=== PATIENT | male | born 1935 | race Two or more races ===

== ENCOUNTER 2017-06-21 22:49 | Inpatient (IN) | payer MEDICARE, OTHER ==
[~2017-06-21] VITALS: Ht 162.6 cm; Wt 54.4 kg
[~2017-06-21 22:49] MED LIST: BACTRIM DS TAB1 EAC1 ORAL; BENAZEPRIL HCL20 MG ORAL; COREG25 MG ORAL; CRESTOR10 M1 ORAL; NORVASC5 MG ORAL; OMEPRAZOLE20 M2 ORAL; TRAMADOL HCL50 MG ORAL; ZANTAC150 MG ORAL
[2017-06-21 23:00] VITALS: BP 137/77
[2017-06-22] VITALS (7 sets, daily range): BP systolic 120–151; BP diastolic 70–95
[2017-06-22 00:59] LABS: BASOPHILS % (AUTO) 0.4 % (0.0-2.0); EOSINOPHILS % (AUTO) 0.3 % (0.0-3.0); HEMATOCRIT 33.7 % (42.0-52.0); HEMOGLOBIN 11.6 G/DL (14.2-18.0); LYMPHOCYTES % (AUTO) 10.4 % (20.0-45.0); MEAN CORPUSCULAR VOLUME 91 FL (80-99); NEUTROPHILS % (AUTO) 81.9 % (45.0-75.0); PLATELET COUNT 222 K/UL (150-450); RED CELL DISTRIBUTION WIDTH 15.9 % (11.6-14.8); WHITE BLOOD COUNT 7.9 K/UL (4.8-10.8)
[2017-06-22 01:03] LABS: ANION GAP 8 mmol/L (5-15); BLOOD UREA NITROGEN 9 mg/dL (7-18); CALCIUM 8.7 MG/DL (8.5-10.1); CARBON DIOXIDE 27 MMOL/L (21-32); CHLORIDE 103 MMOL/L (98-107); CREATININE 1.2 MG/DL (0.55-1.30); POTASSIUM 4.4 MMOL/L (3.5-5.1); SODIUM 138 MMOL/L (136-145)
[2017-06-22 01:08] LABS: ALANINE AMINOTRANSFERASE 47 U/L (12-78); ALBUMIN 3.2 G/DL (3.4-5.0); ALBUMIN/GLOBULIN RATIO 0.9 (1.0-2.7); ALKALINE PHOSPHATASE 100 U/L (46-116); ASPARTATE AMINO TRANSFERASE 26 U/L (15-37); BILIRUBIN,TOTAL 0.3 MG/DL (0.2-1.0)
[2017-06-22] MEDS ORDERED: XARELTO15 MG ORAL (02:07)
[2017-06-22] MEDS ORDERED: ZOFRAN4 M1 ORAL (02:07)
[2017-06-22] MEDS ORDERED: PREDNISOLO15 MG/5 M1 ORAL (02:07)
[2017-06-22] MEDS ORDERED: AVODART0.5 MG ORAL (02:07)
[2017-06-22] MEDS ORDERED: TRAMADOL HCL100 M2 ORAL (02:07)
[2017-06-22] MEDS ORDERED: LIDOCAINE700 M1 TP (02:07)
[2017-06-22] MEDS ORDERED: TAMSULOSIN HCL0.4 MG ORAL (02:07)
[2017-06-22] MEDS ORDERED: ARTIFICIAL TEA1 EAC2 OP (02:07)
[2017-06-22] MEDS ORDERED: CRESTOR10 M1 ORAL (02:07)
[2017-06-22] MEDS ORDERED: TRAMADOL HCL50 MG ORAL (02:07)
[2017-06-22] MEDS ORDERED: VASCEPA1 GM PO (02:07)
[2017-06-22] MEDS ORDERED: PROTONIX20 MG ORAL (02:08)
[2017-06-22] MEDS ORDERED: MOM30 ML ORAL (02:08)
[2017-06-22] MEDS ORDERED: Morphine Sulfate 2mg/ml Inj IVP ONE (02:15)
--- NOTE | 2017-06-22 02:31 | Emergency Room Report ---
History of Present Illness General Chief Complaint: Generalized Weakness Source: Patient, EMS Present Illness HPI 82-year-old male sent [facility] for "vomiting and weakness." However when speaking to patient in seldovia Farsi, RN states that patient complaining of right-sided lower abdominal pain. Patient is otherwise alert and oriented x3. He denies headache, vomiting, fever or, chills or urinary complaints or shortness of breath. HPI otherwise limited Allergies: Coded Allergies: No Known Allergies (Unverified , 06/22/17) Patient History Past Medical History: unable to obtain Past Surgical History: none Social History: Denies: smoking, alcohol use, drug use Immunizations: UTD Reviewed Nursing Documentation: PMH: Agreed, PSxH: Agreed Nursing Documentation-PMH Past Medical History: No History, Except For Hx Cardiac Problems: Yes - STENT in 02/2009 Hx Hypertension: Yes Hx Pacemaker: No Hx Asthma: No Hx COPD: No Hx Diabetes: No Hx Cancer: Yes Hx Gastrointestinal Problems: Yes - GERD, POLYPS, Rt Herniorrhapy in 2009 Hx Dialysis: No Hx Neurological Problems: No Hx Cerebrovascular Accident: No Review of Systems All Other Systems: negative except mentioned in HPI Physical Exam Vital Signs Date Time Temp Pulse Resp B/P (MAP) Pulse Ox O2 Delivery O2 Flow Rate FiO2 06/21/17 22:33 98.0 99 20 97 Room Air 98.1 06/21/17 23:00 137/77 Sp02 EP Interpretation: reviewed, normal General Appearance: normal inspection, well appearing, no apparent distress, alert, non-toxic, cachetic, thin Head: normocephalic, atraumatic Eyes: bilateral eye PERRL, bilateral eye EOMI ENT: normal ENT inspection, hearing grossly normal, normal pharynx, no angioedema, normal voice, TMs + canals normal, uvula midline, moist mucus membranes Neck: normal inspection, full range of motion, supple, thyroid normal, no meningismus, no bony tend Respiratory: normal inspection, lungs clear, normal breath sounds, no rhonchi, no respiratory distress, no retraction, no accessory muscle use, no wheezing, speaking full sentences Cardiovascular #1: regular rate, rhythm, no edema, no JVD, normal capillary refill Gastrointestinal: normal inspection, normal bowel sounds, non tender, soft, no mass, no peritonitis, non-distended, no guarding, no hernia, no pulsatile mass, other - Mild right sided abd ttp. No peritonitis. Musculoskeletal: normal inspection, back normal, normal range of motion, no calf tenderness, pelvis stable, Tiffany's Sign negative Neurologic: normal inspection, alert, oriented x3, responsive, shovel logger III-XII nml as tested, motor strength/tone normal, cerebellar normal, normal gait, speech normal Psychiatric: normal inspection, judgement/insight normal, mood/affect normal, no suicidal/homicidal ideation, no delusions Skin: normal inspection, normal color, no rash Lymphatic: normal inspection, no adenopathy Medical Decision Making Diagnostic Impression: Primary Impression: Episode of generalized weakness Additional Impressions: Abdominal pain Qualified Codes: R10.31 - Right lower quadrant pain Pleural effusion, left ER Course VSS, afebrile Not septic appearing Labs: No leukocytosis, H&H stable. ECG shows bifascicular block however troponin is within normal limits CT: left pleural effusion. No other acute findings. C/o pain to abdomen - was given morphine. Is calm/cooperative when resting, becomes agitated when moved, RN working, etc. ?dementia as well contributing From [facility] PMD listed is Dr Wood Med/surg admit: 5am EKG Diagnostic Results Rate: normal Rhythm: NSR ST Segments: other - Bifasciular block Rhythm Strip Diag. Results EP Interpretation: yes Rate: 97 Rhythm: NSR, no PVC's, no ectopy Last Vital Signs Date Time Temp Pulse Resp B/P (MAP) Pulse Ox O2 Delivery O2 Flow Rate FiO2 18 01:00 98.1 101 24 126/70 97 Room Air 98.1 Status: improved Disposition: ADMITTED INPATIENT Condition: Serious Referrals: NOT CHOSEN IPA/,REFERRING (PCP) ELLIS HILL M.D. Jun 22, 2017 02:31
[2017-06-22 04:03] LABS: APPEARANCE,URINE CLEAR; BILIRUBIN, URINE NEGATIVE (NEGATIVE); COLOR,URINE PALE YELLOW; GLUCOSE, URINE (UA) NEGATIVE (NEGATIVE); KETONES,URINE NEGATIVE (NEGATIVE); LEUKOCYTE ESTERASE ,URINE NEGATIVE (NEGATIVE); NITRITE,URINE NEGATIVE (NEGATIVE); PH,URINE 8 (4.5-8.0); PROTEIN,URINE NEGATIVE (NEGATIVE); UROBILINOGEN,URINE NORMAL MG/DL (0.0-1.0)
[2017-06-22] MEDS ORDERED: traMADol 50mg tab ORAL ONE (09:00)
[2017-06-22] MEDS ORDERED: Norco 5mg/325mg tab ORAL PRN (09:00)
[2017-06-22] MEDS ORDERED: traMADol 50mg tab ORAL PRN (09:00)
[2017-06-22] MEDS: Xarelto 10mg tab ORAL SCH (09:44)
--- NOTE | 2017-06-22 09:54 | Diagnostic Imaging Report ---
Indication: Abdominal pain Technique: Continuous helical transaxial imaging of the abdomen and pelvis was obtained from the lung bases to the pubic symphysis during intravenous contrast administration. Coronal 2-D reformats were also obtained. Study obtained in a Siemens sensation [address] Automatic Exposure Control was utilized. Total Dose length Product (DLP): 898.[address] Dose Index Volume (CTDIvol): 16.38 mGy Comparison: None Findings: There is a small left pleural effusion and basilar pneumonia versus atelectasis. The heart is enlarged. Aorta is moderately calcified. Gallbladder is unremarkable. Accessory spleen noted. The stomach is nondistended. There are bilateral renal cysts. Diverticula noted in the colon. Appendix is normal. Bladder is unremarkable. No free fluid or free air identified. There is narrowing of intervertebral discs and accompanying endplate osteophyte formation. Hypertrophied facet joints also demonstrated.. L1, L2 and L3 vertebra show moderate fracture deformity. These are age-indeterminate but probably old. Please correlate clinically. Bones are osteopenic. Breathing motion noted as well as some other artifacts. IMPRESSION: Left basilar mild to moderate pleural effusion with atelectasis versus pneumonia. Compression fractures of L1, L2 and L3 vertebra probably old. Please correlate clinically. Diverticulosis. No definite diverticulitis in the colon. Other incidental findings as described above. [facility] has communicated the preliminary results to the Emergency Department. Their findings are largely concordant with this report. The CT scanner at [facility] is accredited by the [employer] and the scans are performed using dose optimization techniques as appropriate to a performed exam including Automatic Exposure control.
--- NOTE | 2017-06-22 11:08 | General Progress Note ---
Subjective Date patient seen: Jun 22, 2017 Time patient seen: 10:00 Allergies: Coded Allergies: No Known Allergies (Unverified , 06/22/17) Subjective Full H&P dictation done. Objective Last 24 Hour Vital Signs Date Time Temp Pulse Resp B/P (MAP) Pulse Ox O2 Delivery O2 Flow Rate FiO2 06/22/17 10:44 98.9 06/22/17 10:43 98.9 06/22/17 09:45 110 120/80 06/22/17 09:44 100.8 06/22/17 09:00 100.8 110 19 120/80 93 100.8 06/22/17 05:31 99.0 98 17 134/83 98 Room Air 06/22/17 05:30 99.0 98 17 134/83 98 Room Air 99.0 06/22/17 05:05 99.0 98 26 151/95 98 Room Air 99.0 06/22/17 01:00 98.1 101 24 126/70 97 Room Air 98.1 06/21/17 23:00 98.1 16 137/77 97 Room Air 98.1 06/21/17 22:33 98.0 99 20 97 Room Air 98.1 Laboratory Tests 06/22/17 00:50: White Blood Count 7.9, Red Blood Count 3.70L, Hemoglobin 11.6L, Hematocrit 33.7L , Mean Corpuscular Volume 91, Mean Corpuscular Hemoglobin 31.3H, Mean Corpuscular Hemoglobin Concent 34.4, Red Cell Distribution Width 15.9H, Platelet Count 222, Mean Platelet Volume 6.2L, Neutrophils (%) (Auto) 81.9H, Lymphocytes (%) (Auto) 10.4L, Monocytes (%) (Auto) 7.0, Eosinophils (%) (Auto) 0.3, Basophils (%) (Auto) 0.4, Sodium Level 138, Potassium Level 4.4, Chloride Level 103, Carbon Dioxide Level 27, Anion Gap 8, Blood Urea Nitrogen 9, Creatinine 1.2, Estimat Glomerular Filtration Rate , Glucose Level 119H, Calcium Level 8.7, Total Bilirubin 0.3, Aspartate Amino Transf (AST/SGOT) 26, Alanine Aminotransferase (ALT/SGPT) 47, Alkaline Phosphatase 100, Troponin I 0.017, Total Protein 6.8, Albumin 3.2L, Globulin 3.6, Albumin/Globulin Ratio 0.9L, Lipase 170 06/22/17 02:25: Urine Color Pale yellow, Urine Appearance Clear, Urine pH 8, Urine Specific [place] 1.010, Urine Protein Negative, Urine Glucose (UA) Negative, Urine Ketones Negative, Urine Occult Blood 2+H, Urine Nitrite Negative, Urine Bilirubin Negative, Urine Urobilinogen Normal, Urine Leukocyte Esterase Negative , Urine RBC 2-4H, Urine WBC 0-2, Urine Squamous Epithelial Cells Occasional, Urine Bacteria Occasional Height (Feet): 5 Height (Inches): 4.00 Weight (Pounds): 120 JANETH THOMAS Jun 22, 2017 11:08
[2017-06-22] MEDS: Cefepime HCl 2 GM in NS 55 ML IVPB SCH (12:27)
[2017-06-22] MEDS ORDERED: Vancomycin 1gm in D5W 275ml IVPB ONE (13:00)
--- NOTE | 2017-06-22 14:19 | Infectious Diseases Prog Note ---
Assessment/Plan Problems: (1) Aspiration pneumonia Assessment & Plan: will continue vancomycin, and cefepime, add flagyl, pending culture results and influenza screening, keep NPO, will order speech eval (2) Sepsis Assessment & Plan: suspect due to the above , continue wide spectrum antibiotics pending cultures (3) Dysphagia Assessment & Plan: due to altered mental status , will order speech eval , keep NPO (4) Abdominal pain Assessment & Plan: unclear etiology, CT abdomen was negative. Subjective Allergies: Coded Allergies: No Known Allergies (Unverified , 06/22/17) Objective Vital Signs Last 24 Hour Vital Signs Date Time Temp Pulse Resp B/P (MAP) Pulse Ox O2 Delivery O2 Flow Rate FiO2 06/22/17 10:44 98.9 06/22/17 10:43 98.9 06/22/17 09:45 110 120/80 06/22/17 09:44 100.8 06/22/17 09:00 100.8 110 19 120/80 93 100.8 06/22/17 05:31 99.0 98 17 134/83 98 Room Air 06/22/17 05:30 99.0 98 17 134/83 98 Room Air 99.0 06/22/17 05:05 99.0 98 26 151/95 98 Room Air 99.0 06/22/17 01:00 98.1 101 24 126/70 97 Room Air 98.1 06/21/17 23:00 98.1 16 137/77 97 Room Air 98.1 06/21/17 22:33 98.0 99 20 97 Room Air 98.1 Height (Feet): 5 Height (Inches): 4.00 Weight (Pounds): 120 Laboratory Tests Test 06/22/17 00:50 06/22/17 02:25 White Blood Count 7.9 K/UL (4.8-10.8) Red Blood Count 3.70 M/UL (4.70-6.10) L Hemoglobin 11.6 G/DL (14.2-18.0) L Hematocrit 33.7 % (42.0-52.0) L Mean Corpuscular Volume 91 FL (80-99) Mean Corpuscular Hemoglobin 31.3 PG (27.0-31.0) H Mean Corpuscular Hemoglobin Concent 34.4 G/DL (32.0-36.0) Red Cell Distribution Width 15.9 % (11.6-14.8) H Platelet Count 222 K/UL (150-450) Mean Platelet Volume 6.2 FL (6.5-10.1) L Neutrophils (%) (Auto) 81.9 % (45.0-75.0) H Lymphocytes (%) (Auto) 10.4 % (20.0-45.0) L Monocytes (%) (Auto) 7.0 % (1.0-10.0) Eosinophils (%) (Auto) 0.3 % (0.0-3.0) Basophils (%) (Auto) 0.4 % (0.0-2.0) Sodium Level 138 MMOL/L (136-145) Potassium Level 4.4 MMOL/L (3.5-5.1) Chloride Level 103 MMOL/L (98-107) Carbon Dioxide Level 27 MMOL/L (21-32) Anion Gap 8 mmol/L (5-15) Blood Urea Nitrogen 9 mg/dL (7-18) Creatinine 1.2 MG/DL (0.55-1.30) Estimat Glomerular Filtration Rate mL/min (>60) Glucose Level 119 MG/DL (74-106) H Calcium Level 8.7 MG/DL (8.5-10.1) Total Bilirubin 0.3 MG/DL (0.2-1.0) Aspartate Amino Transf (AST/SGOT) 26 U/L (15-37) Alanine Aminotransferase (ALT/SGPT) 47 U/L (12-78) Alkaline Phosphatase 100 U/L (46-116) Troponin I 0.017 ng/mL (0.000-0.056) Total Protein 6.8 G/DL (6.4-8.2) Albumin 3.2 G/DL (3.4-5.0) L Globulin 3.6 g/dL Albumin/Globulin Ratio 0.9 (1.0-2.7) L Lipase 170 U/L (73-393) Urine Color Pale yellow Urine Appearance Clear Urine pH 8 (4.5-8.0) Urine Specific [place] 1.010 (1.005-1.035) Urine Protein Negative (NEGATIVE) Urine Glucose (UA) Negative (NEGATIVE) Urine Ketones Negative (NEGATIVE) Urine Occult Blood 2+ (NEGATIVE) H Urine Nitrite Negative (NEGATIVE) Urine Bilirubin Negative (NEGATIVE) Urine Urobilinogen Normal MG/DL (0.0-1.0) Urine Leukocyte Esterase Negative (NEGATIVE) Urine RBC 2-4 /HPF (0 - 0) H Urine WBC 0-2 /HPF (0 - 0) Urine Squamous Epithelial Cells Occasional /LPF Urine Bacteria Occasional /HPF (NONE) Current Medications Medications (Trade) Dose Ordered Sig/Amando Route PRN Reason Start Time Stop Time Status Last Admin Dose Admin Acetaminophen (Tylenol) 650 mg Q6H PRN ORAL Mild Pain/Temp > 100.5 06/22/17 09:45 07/22/17 09:44 06/22/17 09:44 Acetaminophen/ Hydrocodone Bitart ([place] 5/325) 1 tab Q8H PRN ORAL Severe Pain (Pain Scale 7-10) 06/22/17 09:00 06/29/17 08:59 Amlodipine Besylate (Norvasc) 5 mg DAILY ORAL 06/22/17 09:00 07/22/17 08:59 06/22/17 09:45 Cefepime HCl 2 gm/ Sodium Chloride 55 ml @ 110 mls/hr Q24H IVPB 06/22/17 12:00 06/29/17 11:59 06/22/17 12:27 Lidocaine (Lidoderm 5% PATCH) 1 patch DAILY TDERMAL 06/22/17 09:30 07/22/17 09:29 Ondansetron HCl (Zofran) 4 mg Q6H PRN IVP Nausea & Vomiting 06/22/17 08:30 07/22/17 08:29 Pantoprazole (Protonix) 40 mg ACBREAKFAST ORAL 06/22/17 11:30 07/22/17 11:29 06/22/17 10:48 Prednisone (predniSONE) 15 mg QOD ORAL 06/22/17 09:00 07/22/17 08:59 06/22/17 10:48 Rivaroxaban (Xarelto) 15 mg DAILY ORAL 06/22/17 09:00 07/22/17 08:59 06/22/17 09:44 Sennosides (Senokot) 2 tab QHS ORAL 06/22/17 21:00 07/22/17 20:59 Tamsulosin HCl (Flomax) 0.4 mg BEDTIME ORAL 06/22/17 21:00 07/22/17 20:59 Tramadol HCl (Ultram) 50 mg Q6H PRN ORAL Moderate Pain (Pain Scale 4-6) 06/22/17 09:00 06/29/17 08:59 06/22/17 09:44 Vancomycin HCl (Vanco rx to dose) 1 ea DAILY PRN MISC Per rx protocol 06/22/17 11:00 07/22/17 10:59 Vancomycin HCl 1 gm/Dextrose 275 ml @ 183.708 mls/hr ONCE ONCE IVPB 06/22/17 13:00 06/22/17 14:29 06/22/17 13:40 Vancomycin/Sodium Chloride 250 ml @ 166.667 mls/hr Q24H IVPB 06/23/17 13:00 06/28/17 12:59 Josesito Villeda M.D. Jun 22, 2017 14:19
[2017-06-22] MEDS ORDERED: NS 500ML ONE (16:56)
[2017-06-22] MEDS ORDERED: Tubing IV Secondary IV ONE (16:56)
--- NOTE | 2017-06-22 20:30 | History and Physical Report ---
DATE OF ADMISSION: 06/22/2017 CHIEF COMPLAINT: Nausea, vomiting, and abdominal pain with diarrhea. HISTORY OF PRESENT ILLNESS: This is an 82-year-old Chinese male who was brought in from assisted living at [facility] for complaint of 2-3 episodes of vomiting and had severe abdominal pain with diarrhea. The patient had vomiting yesterday around evening. The patient denied any chest pain or shortness of breath. He also had low-grade fever last night. Per daughter, the patient has history of multiple myeloma and status post chemotherapy that was stopped 2 weeks ago after the patient responded well to the treatment. PAST MEDICAL HISTORY: Include history of multiple myeloma, status post chemo, hyperlipidemia, BPH, hypertension, GERD, abdominal pain, and possible AFib. PAST SURGICAL HISTORY: None. HOME MEDICATIONS: Include prednisone 15 mg daily, Vascepa 1 g one capsule by mouth b.i.d., Avodart 0.5 mg nightly, tramadol 50 mg b.i.d. p.r.n., Crestor 20 mg nightly, Flomax 0.4 mg nightly, Xarelto 15 mg daily, Lotrel 5/25 one capsule daily, Protonix 40 mg daily, senna two tablets nightly, zinc oxide one capsule daily, lidocaine 5% patch apply 12 hours on and 12 hours off, Tylenol 650 mg q.6 h. p.r.n. SOCIAL HISTORY: Denies any smoking, alcohol, or drug use. REVIEW OF SYSTEMS: Negative except per HPI. PHYSICAL EXAMINATION: VITAL SIGNS: Temperature in the ER 98.0, pulse 99, respirations 20, blood pressure 137/77, and pulse oximetry 97% on room air. GENERAL APPEARANCE: The patient complained of severe abdominal pain and slight discomfort when palpating his abdomen. HEENT: Normocephalic and normochromic. Extraocular muscles intact. Throat is clear. NECK: Supple. No lymphadenopathy. CARDIOVASCULAR: Regular rate and rhythm except for slight tachycardia. LUNGS: Clear to auscultation bilaterally. ABDOMEN: Soft. Positive tenderness in the epigastric area. No mass palpated. EXTREMITIES: No edema, cyanosis, or clubbing. NEUROLOGIC: The patient responds to commands, alert, and oriented x2. SKIN: No rash. LABORATORY AND DIAGNOSTIC DATA: Sodium 138, potassium 4.4, chloride 103, bicarbonate 27, BUN 9, creatinine 1.2, glucose 119, calcium 8.7. AST 26, ALT 47, and alkaline phosphatase 100. Troponin 0.017. Albumin 3.2. Lipase 170. WBC 7.9, hemoglobin 11.6, hematocrit 33.7, and platelet count 222,000. UA showed clear, negative for nitrites, negative for leukocyte esterase, urine rbc 2 to 4 and wbc [address] of head was negative. CT of abdomen showed left basilar [id number] pleural effusion with atelectasis versus pneumonia. Compression fracture of L1, L2, and L3 vertebral bodies and diverticulosis without any diverticulitis. IMPRESSION AND PLAN: 1. Pleural effusion with possible aspiration pneumonia. We will start the patient on vancomycin and cefepime and we will have ID follow the patient as well. 2. Abdominal pain and diarrhea with vomiting, possibly secondary to gastritis, but we will have the GI evaluate the patient this morning. 3. Pleural effusion. 4. History of multiple myeloma, status post chemo. 5. Hyperlipidemia. 6. BPH. 7. Hypertension. 8. Gastritis. DISPOSITION: The patient will be admitted for minimum of two-night stay for diagnosis of aspiration pneumonia and abdominal pain. Annamaria Lemus M.D. DR: NICOLLE JOB#: [id number] CC: AUGIE
[2017-06-22] MEDS ORDERED: Sennosides 8.6mg ORAL SCH (21:00)
[2017-06-22] MEDS: Tamsulosin 0.4mg cap ORAL SCH (22:13)
[2017-06-22] MEDS: Sennosides 8.6mg ORAL SCH (22:13)
[2017-06-23] VITALS: BP 139/77
[2017-06-23 08:13] LABS: EOSINOPHILS % (AUTO) 0.1 % (0.0-3.0); HEMATOCRIT 30.8 % (42.0-52.0); HEMOGLOBIN 10.3 G/DL (14.2-18.0); LYMPHOCYTES % (AUTO) 27.8 % (20.0-45.0); MEAN CORPUSCULAR VOLUME 91 FL (80-99); MONOCYTES % (AUTO) 15.1 % (1.0-10.0); NEUTROPHILS % (AUTO) 55.9 % (45.0-75.0); PLATELET COUNT 177 K/UL (150-450); RED BLOOD COUNT 3.38 M/UL (4.70-6.10); RED CELL DISTRIBUTION WIDTH 15.9 % (11.6-14.8); WHITE BLOOD COUNT 4.8 K/UL (4.8-10.8)
[2017-06-23 08:25] LABS: AMYLASE 82 U/L (25-115); ANION GAP 6 mmol/L (5-15); BLOOD UREA NITROGEN 14 mg/dL (7-18); CALCIUM 7.8 MG/DL (8.5-10.1); CARBON DIOXIDE 26 MMOL/L (21-32); CHLORIDE 108 MMOL/L (98-107); CREATININE 1.1 MG/DL (0.55-1.30); POTASSIUM 3.7 MMOL/L (3.5-5.1); SODIUM 140 MMOL/L (136-145)
[2017-06-23 09:00] VITALS: BP 136/75
--- NOTE | 2017-06-23 09:00 | General Progress Note ---
Assessment/Plan Status: stable Assessment/Plan 1. Aspiration Pneumonia - cont IV abx. improving. Swallowing eval pending but he is eating well with family this morning. breathing txt ordered. 2. Abd pain and vomiting - resolved. 3. HTN - cont meds. controlled. 4. Generalized weakness - PT and OT eval and txt. 5. H/O Multiple Myloma s/p Chemo - off chemo for past 2 wks per daughter. 6. Pleural Effusion - asymptomatic. Subjective Date patient seen: Jun 23, 2017 Constitutional: Reports: weakness HEENT: Reports: no symptoms Cardiovascular: Reports: no symptoms Respiratory: Reports: other - chest congestion Gastrointestinal/Abdominal: Reports: no symptoms Genitourinary: Reports: no symptoms Neurologic/Psychiatric: Reports: no symptoms Endocrine: Reports: no symptoms Hematologic/Lymphatic: Reports: no symptoms Allergies: Coded Allergies: No Known Allergies (Unverified , 06/22/17) Subjective This morning he is doing well. Eating breakfast with his duaghter at bedside. no fever or chills. He still has chest congestion. No nausea or vomiting. no diarrhea. Objective Last 24 Hour Vital Signs Date Time Temp Pulse Resp B/P (MAP) Pulse Ox O2 Delivery O2 Flow Rate FiO2 06/23/17 00:00 97.9 72 20 139/77 97 97.9 06/22/17 20:00 98.1 80 20 148/85 97 98.1 06/22/17 16:00 Room Air 06/22/17 15:59 97.2 74 19 134/78 94 97.2 06/22/17 12:00 98.2 86 20 126/78 96 Room Air 98.2 06/22/17 10:44 98.9 06/22/17 10:43 98.9 06/22/17 09:45 110 120/80 06/22/17 09:44 100.8 06/22/17 09:00 100.8 110 19 120/80 93 100.8 06/22/17 09:00 Room Air Intake and Output 06/22/17 06/23/17 19:00 07:00 Intake Total 515 ml 200 ml Balance 515 ml 200 ml Intake Oral 360 ml IV Total 155 ml 200 ml # Voids 3 Laboratory Tests 06/23/17 06:20: White Blood Count 4.8, Red Blood Count 3.38L, Hemoglobin 10.3L, Hematocrit 30.8L , Mean Corpuscular Volume 91, Mean Corpuscular Hemoglobin 30.7, Mean Corpuscular Hemoglobin Concent 33.5, Red Cell Distribution Width 15.9H, Platelet Count 177, Mean Platelet Volume 5.8L, Neutrophils (%) (Auto) 55.9, Lymphocytes (%) (Auto) 27.8, Monocytes (%) (Auto) 15.1H, Eosinophils (%) (Auto) 0.1, Basophils (%) (Auto) 1.0, Sodium Level 140, Potassium Level 3.7, Chloride Level 108H, Carbon Dioxide Level 26, Anion Gap 6, Blood Urea Nitrogen 14, Creatinine 1.1, Estimat Glomerular Filtration Rate , Glucose Level 85, Calcium Level 7.8L, Amylase Level 82, Lipase 152 Height (Feet): 5 Height (Inches): 4.00 Weight (Pounds): 120 General Appearance: no apparent distress, alert EENT: normal ENT inspection Neck: non-tender, normal alignment, supple Cardiovascular: normal peripheral pulses, normal rate, regular rhythm Respiratory/Chest: no respiratory distress, crackles/rales Abdomen: normal bowel sounds, non tender, soft, no organomegaly Extremities: non-tender, normal inspection Edema: no edema noted Arm (L), no edema noted Arm (R), no edema noted Leg (L), no edema noted Leg (R), no edema noted Pedal (L), no edema noted Pedal (R), no edema noted Generalized Neurologic: alert, oriented x 3, responsive Skin: warm/dry Lymphatic: normal anterior cervical (L), normal anterior cervical (R), normal posterior cervical (L), normal posterior cervical (R), normal submandibular (L) , normal submandibular (R), normal supraclavicular (L), normal supraclavicular ( R), normal axillary (L), normal axillary (R), normal inguinal (L), normal inguinal (R), normal other JANETH THOMAS Jun 23, 2017 09:00
[2017-06-23] MEDS: Xarelto 10mg tab ORAL SCH (09:07)
[2017-06-23] MEDS ORDERED: Albuterol/Ipratropium 3ml neb HHN PRN (10:00)
[2017-06-23] MEDS: Cefepime HCl 2 GM in NS 55 ML IVPB SCH (11:24)
[2017-06-23 12:00] VITALS: BP 150/74
--- NOTE | 2017-06-23 12:08 | GI Initial Consult Note ---
Dorsey,Merari Bill N.P. 06/23/17 1208: History of Present Illness General Date patient seen: Jun 23, 2017 Time patient seen: 12:04 Reason for Hospitalization: Generalized Weakness Referring physician: JANETH THOMAS Reason for Consultation: VOMITING Present Illness HPI 82-year-old male sent from shelter for "vomiting and weakness." However when speaking to patient in squaxin Farsi, RN states that patient complaining of right-sided lower abdominal pain. Patient is otherwise alert and oriented x3. He denies headache, vomiting, fever or, chills or urinary complaints or shortness of breath. HPI otherwise limited. Home Meds Active Scripts Trimethoprim/Sulfamethoxazole 160/800* (BACTRIM DS TABLET*) 1 Each Tablet, 1 TAB ORAL Q12H, #14 TAB Prov:Ambrocio Brown 10/10/14 Ranitidine Hcl* (ZANTAC*) 150 Mg Tablet, 150 MG ORAL DAILY, #30 TAB Prov:ZHENG ROMERO 10/29/12 Reported Medications Sennosides* (SENNOSIDES*) 8.6 Mg Tablet, 8.6 MG ORAL DAILY, TAB 06/25/17 Metronidazole* (FLAGYL*) 500 Mg Tablet, 500 MG ORAL EVERY 8 HOURS, TAB 06/25/17 Vancomycin Hcl/D5w (VANCOMYCIN-D5W 1 G/250 ML) 1 Gm/250 Ml Plast..bag, 0.75 GM IVPB Q24H, BAG 06/25/17 Cefepime Hcl/D5w (CEFEPIME-DEXTROSE 2 GM/50 ML) 2 Gm/50 Ml Piggyback, 2 GM IVPB Q24H, BAG 06/25/17 Pantoprazole Sodium (PROTONIX) 20 Mg Tablet.dr, 40 MG ORAL EVERY 12 HOURS, TAB 06/22/17 Magnesium Hydroxide (Milk of Magnesia) 400 Mg/5 Ml Oral.susp, 30 ML ORAL TWICE A DAY, ML 06/22/17 Tramadol Hcl* (ULTRAM*) 50 Mg Tablet, 50 MG ORAL Q6H Y for For Pain, #30 TAB 0 Refills 06/22/17 Ondansetron (Zofran) 4 Mg Tablet, 4 MG ORAL Q6H Y for Nausea & Vomiting, TAB 06/22/17 Lidocaine (Lidocaine) 1 Each Adh..patch, 700 MG TP, PATCH 3//18 Rivaroxaban (XARELTO) 15 Mg Tablet, 15 MG ORAL for 30 Days, MG 0 Refills 06/22/17 Tamsulosin Hcl (TAMSULOSIN HCL*) 0.4 Mg Cap.er.24h, 0.4 MG ORAL BEDTIME, CAP 06/22/17 Rosuvastatin Calcium (Crestor) 5 Mg Tablet, 20 MG ORAL DAILY, TAB 06/22/17 Dutasteride (AVODART) 0.5 Mg Capsule, 0.5 MG ORAL DAILY, CAP 06/22/17 Tramadol Hcl (TRAMADOL HCL) 100 Mg Tab.er.24h, 0.4 MG ORAL DAILY, TAB 06/22/17 Dextran 70/Hypromellose (ARTIFICIAL TEARS) 1 Each Droperette, 1 EACH OP 06/22/17 Icosapent Ethyl (VASCEPA) 1 Gm Capsule, 1 GM PO, CAP 06/22/17 Prednisolone* (PRELONE*) 15 Mg/5 Ml Solution, 20 MG ORAL, ML 06/22/17 Carvedilol (Coreg) 25 Mg Tab, MG ORAL, TAB 10/29/12 Benazepril Hcl* (BENAZEPRIL HCL*) 20 Mg Tablet, 20 MG ORAL DAILY, TAB 10/29/12 Amlodipine Besylate (Norvasc) 5 Mg Tab, 5 MG ORAL DAILY 10/29/12 Tramadol Hcl* (ULTRAM*) 50 Mg Tablet, 50 MG ORAL Q6H, #30 TAB 10/29/12 Rosuvastatin Calcium (Crestor) 10 Mg Tab, 20 MG ORAL DAILY 10/29/12 Omeprazole (OMEPRAZOLE) 20 Mg Capsule.dr, 20 MG ORAL BID, #30 CAP 10/29/12 Med list reviewed/reconciled: Yes Allergies: Coded Allergies: No Known Allergies (Unverified , 06/22/17) Patient History Limited by: medical condition History Provided By: Medical Record PMH Narrative Past Medical History: unable to obtain Past Surgical History: none Social History: Denies: smoking, alcohol use, drug use Immunizations: UTD Reviewed Nursing Documentation: PMH: Agreed, PSxH: Agreed Nursing Documentation-PMH Past Medical History: No History, Except For Hx Cardiac Problems: Yes - STENT in 02/2009 Hx Hypertension: Yes Hx Pacemaker: No Hx Asthma: No Hx COPD: No Hx Diabetes: No Hx Cancer: Yes Hx Gastrointestinal Problems: Yes - GERD, POLYPS, Rt Herniorrhapy in 2010 Hx Dialysis: No Hx Neurological Problems: No Hx Cerebrovascular Accident: No Review of Systems All Other Systems: limited Physical Exam Vital Signs Date Time Temp Pulse Resp B/P (MAP) Pulse Ox O2 Delivery O2 Flow Rate FiO2 06/21/17 22:33 98.0 99 20 97 Room Air 98.1 06/21/17 23:00 137/77 Sp02 EP Interpretation: reviewed Labs Laboratory Tests Test 06/23/17 06:20 06/23/17 10:45 White Blood Count 4.8 K/UL (4.8-10.8) Red Blood Count 3.38 M/UL (4.70-6.10) L Hemoglobin 10.3 G/DL (14.2-18.0) L Hematocrit 30.8 % (42.0-52.0) L Mean Corpuscular Volume 91 FL (80-99) Mean Corpuscular Hemoglobin 30.7 PG (27.0-31.0) Mean Corpuscular Hemoglobin Concent 33.5 G/DL (32.0-36.0) Red Cell Distribution Width 15.9 % (11.6-14.8) H Platelet Count 177 K/UL (150-450) Mean Platelet Volume 5.8 FL (6.5-10.1) L Neutrophils (%) (Auto) 55.9 % (45.0-75.0) Lymphocytes (%) (Auto) 27.8 % (20.0-45.0) Monocytes (%) (Auto) 15.1 % (1.0-10.0) H Eosinophils (%) (Auto) 0.1 % (0.0-3.0) Basophils (%) (Auto) 1.0 % (0.0-2.0) Sodium Level 140 MMOL/L (136-145) Potassium Level 3.7 MMOL/L (3.5-5.1) Chloride Level 108 MMOL/L (98-107) H Carbon Dioxide Level 26 MMOL/L (21-32) Anion Gap 6 mmol/L (5-15) Blood Urea Nitrogen 14 mg/dL (7-18) Creatinine 1.1 MG/DL (0.55-1.30) Estimat Glomerular Filtration Rate mL/min (>60) Glucose Level 85 MG/DL (74-106) Calcium Level 7.8 MG/DL (8.5-10.1) L Amylase Level 82 U/L (25-115) Lipase 152 U/L (73-393) Stool Occult Blood Negative (NEGATIVE) General Appearance: well appearing, no apparent distress, alert, thin Head: normocephalic EENT: normal ENT inspection Neck: supple Respiratory: normal breath sounds, no respiratory distress Cardiovascular: normal rate Gastrointestinal: non tender, soft Rectal: deferred Genitourinary: no CVA tenderness Musculoskeletal: back normal Neurologic: alert Skin: normal inspection, normal color, no rash, warm/dry Lymphatic: normal inspection, no adenopathy Current Medications Current Medications Medications (Trade) Dose Ordered Sig/Amando Route PRN Reason Start Time Stop Time Status Last Admin Dose Admin Acetaminophen (Tylenol) 650 mg Q6H PRN ORAL Mild Pain/Temp > 100.5 06/22/17 09:45 07/22/17 09:44 06/22/17 09:44 Acetaminophen/ Hydrocodone Bitart ([place] 5/325) 1 tab Q8H PRN ORAL Severe Pain (Pain Scale 7-10) 06/22/17 09:00 06/29/17 08:59 Albuterol/ Ipratropium (Albuterol/ Ipratropium) 3 ml Q6H PRN HHN Shortness of Breath 06/23/17 10:00 06/28/17 09:59 Amlodipine Besylate (Norvasc) 5 mg DAILY ORAL 06/22/17 09:00 07/22/17 08:59 06/23/17 09:08 Cefepime HCl 2 gm/ Sodium Chloride 55 ml @ 110 mls/hr Q24H IVPB 06/22/17 12:00 06/29/17 11:59 06/23/17 11:24 Lidocaine (Lidoderm 5% PATCH) 1 patch DAILY PRN TDERMAL FOR BACK PAIN 06/22/17 19:45 07/22/17 19:44 Metronidazole 100 ml @ 100 mls/hr Q8HR IVPB 06/22/17 15:30 06/29/17 15:29 06/23/17 05:39 Ondansetron HCl (Zofran) 4 mg Q6H PRN IVP Nausea & Vomiting 06/22/17 08:30 07/22/17 08:29 Pantoprazole (Protonix) 40 mg ACBREAKFAST ORAL 06/22/17 11:30 07/22/17 11:29 06/23/17 05:38 Prednisone (predniSONE) 15 mg QOD ORAL 06/22/17 09:00 07/22/17 08:59 06/22/17 10:48 Rivaroxaban (Xarelto) 15 mg DAILY ORAL 06/22/17 09:00 07/22/17 08:59 06/23/17 09:07 Sennosides (Senokot) 2 tab QHS ORAL 06/22/17 21:00 07/22/17 20:59 06/22/17 22:13 Tamsulosin HCl (Flomax) 0.4 mg BEDTIME ORAL 06/22/17 21:00 07/22/17 20:59 06/22/17 22:13 Tramadol HCl (Ultram) 50 mg Q6H PRN ORAL Moderate Pain (Pain Scale 4-6) 06/22/17 09:00 06/29/17 08:59 06/22/17 09:44 Vancomycin HCl (Vanco rx to dose) 1 ea DAILY PRN MISC Per rx protocol 06/22/17 11:00 07/22/17 10:59 Vancomycin/Sodium Chloride 250 ml @ 166.667 mls/hr Q24H IVPB 06/23/17 13:00 06/28/17 12:59 GI: Plan Problems: (1) Vomiting (2) Abdominal pain (3) Dysphagia (4) Diarrhea (5) Dehydration Plan OB stool negative symptomatic treatment anemia work up zofran prn, reglan for persistent vomiting ST eval for dysphagia, possible video adv diet per ST PT/OT eval electrolyte correction ppi bowel regime fu labs Discussed with Dr. Magallon. Thank you for this patient referral, we will follow. KERRY MAGALLON 07/01/17 6277: History of Present Illness General Reason for Hospitalization: Generalized Weakness Present Illness Home Meds Active Scripts Trimethoprim/Sulfamethoxazole 160/800* (BACTRIM DS TABLET*) 1 Each Tablet, 1 TAB ORAL Q12H, #14 TAB Prov:Ambrocio Brown 10/10/14 Ranitidine Hcl* (ZANTAC*) 150 Mg Tablet, 150 MG ORAL DAILY, #30 TAB Prov:ZHENG ROMERO 10/29/12 Reported Medications Sennosides* (SENNOSIDES*) 8.6 Mg Tablet, 8.6 MG ORAL DAILY, TAB 06/25/17 Metronidazole* (FLAGYL*) 500 Mg Tablet, 500 MG ORAL EVERY 8 HOURS, TAB 06/25/17 Vancomycin Hcl/D5w (VANCOMYCIN-D5W 1 G/250 ML) 1 Gm/250 Ml Plast..bag, 0.75 GM IVPB Q24H, BAG 06/25/17 Cefepime Hcl/D5w (CEFEPIME-DEXTROSE 2 GM/50 ML) 2 Gm/50 Ml Piggyback, 2 GM IVPB Q24H, BAG 06/25/17 Pantoprazole Sodium (PROTONIX) 20 Mg Tablet.dr, 40 MG ORAL EVERY 12 HOURS, TAB 06/22/17 Magnesium Hydroxide (Milk of Magnesia) 400 Mg/5 Ml Oral.susp, 30 ML ORAL TWICE A DAY, ML 06/22/17 Tramadol Hcl* (ULTRAM*) 50 Mg Tablet, 50 MG ORAL Q6H Y for For Pain, #30 TAB 0 Refills 06/22/17 Ondansetron (Zofran) 4 Mg Tablet, 4 MG ORAL Q6H Y for Nausea & Vomiting, TAB 06/22/17 Lidocaine (Lidocaine) 1 Each Adh..patch, 700 MG TP, PATCH 06/22/17 Rivaroxaban (XARELTO) 15 Mg Tablet, 15 MG ORAL for 30 Days, MG 0 Refills 06/22/17 Tamsulosin Hcl (TAMSULOSIN HCL*) 0.4 Mg Cap.er.24h, 0.4 MG ORAL BEDTIME, CAP 06/22/17 Rosuvastatin Calcium (Crestor) 5 Mg Tablet, 20 MG ORAL DAILY, TAB 06/22/17 Dutasteride (AVODART) 0.5 Mg Capsule, 0.5 MG ORAL DAILY, CAP 06/22/17 Tramadol Hcl (TRAMADOL HCL) 100 Mg Tab.er.24h, 0.4 MG ORAL DAILY, TAB 06/22/17 Dextran 70/Hypromellose (ARTIFICIAL TEARS) 1 Each Droperette, 1 EACH OP 06/22/17 Icosapent Ethyl (VASCEPA) 1 Gm Capsule, 1 GM PO, CAP 06/22/17 Prednisolone* (PRELONE*) 15 Mg/5 Ml Solution, 20 MG ORAL, ML 06/22/17 Carvedilol (Coreg) 25 Mg Tab, MG ORAL, TAB 10/29/12 Benazepril Hcl* (BENAZEPRIL HCL*) 20 Mg Tablet, 20 MG ORAL DAILY, TAB 10/29/12 Amlodipine Besylate (Norvasc) 5 Mg Tab, 5 MG ORAL DAILY 10/29/12 Tramadol Hcl* (ULTRAM*) 50 Mg Tablet, 50 MG ORAL Q6H, #30 TAB 10/29/12 Rosuvastatin Calcium (Crestor) 10 Mg Tab, 20 MG ORAL DAILY 10/29/12 Omeprazole (OMEPRAZOLE) 20 Mg Capsule.dr, 20 MG ORAL BID, #30 CAP 10/29/12 Allergies: Coded Allergies: No Known Allergies (Unverified , 06/22/17) GI: Plan Plan The patient was seen and examined at bedside and all new and available data was reviewed in the patients chart. I agree with the above findings, impression and plan. (Patient seen earlier today. Signature stamp does not reflect patient encounter time.). - MD [facility] Bill N.PMonse Jun 23, 2017 12:08 KERRY MAGALLON Jul 01, 2017 13:27
[2017-06-23] MEDS: Vancomycin 750mg/NS 250ml IVPB SCH (12:20)
--- NOTE | 2017-06-23 13:45 | Infectious Diseases Prog Note ---
Assessment/Plan Problems: (1) Aspiration pneumonia Assessment & Plan: continue vancomycin, cefepime, and flagyl , pending culture results and influenza screening , keep NPO, will order speech eval (2) Sepsis Assessment & Plan: suspect due to the above , continue wide spectrum antibiotics pending cultures (3) Dysphagia Assessment & Plan: due to altered mental status , refused speech eval , will attempt to repeat , continue aspiration precaution and keep HOB > 30 degree (4) Abdominal pain Assessment & Plan: resolved, unclear etiology, CT abdomen was negative. Subjective Constitutional: Reports: no symptoms HEENT: Reports: no symptoms Respiratory: Reports: no symptoms Breasts: Reports: no symptoms Cardiovascular: Reports: no symptoms Gastrointestinal/Abdominal: Reports: no symptoms Genitourinary: Reports: no symptoms Neurologic: Reports: no symptoms Psychiatric: Reports: no symptoms Skin: Reports: no symptoms Endocrine: Reports: no symptoms Hematologic: Reports: no symptoms Musculoskeletal: Reports: no symptoms Allergies: Coded Allergies: No Known Allergies (Unverified , 06/22/17) Objective Vital Signs Last 24 Hour Vital Signs Date Time Temp Pulse Resp B/P (MAP) Pulse Ox O2 Delivery O2 Flow Rate FiO2 06/23/17 12:00 97.9 80 20 150/74 96 97.9 06/23/17 09:08 85 136/75 06/23/17 09:00 97.7 85 20 136/75 98 97.7 06/23/17 00:00 97.9 72 20 139/77 97 97.9 06/22/17 20:00 98.1 80 20 148/85 97 98.1 06/22/17 16:00 Room Air 06/22/17 15:59 97.2 74 19 134/78 94 97.2 Height (Feet): 5 Height (Inches): 4.00 Weight (Pounds): 120 General Appearance: WD/WN, no acute distress HEENT: normocephalic, atraumatic, anicteric, mucous membranes moist, PERRL Respiratory/Chest: chest wall non-tender, lungs clear, normal breath sounds, no respiratory distress, no accessory muscle use Cardiovascular: normal peripheral pulses, normal rate, regular rhythm, no gallop/murmur, no JVD Abdomen: normal bowel sounds, soft, non tender, no organomegaly, non distended , no mass, no scars Extremities: no cyanosis, no clubbing Skin: no rash, no lesions, no ulcers Neurologic/Psychiatric: alert, responsive Lymphatic: no neck adenopathy, no groin adenopathy Microbiology Date/Time Source Procedure Growth Status 06/22/17 14:50 Nasal Nares Influenza Types A,B Antigen (JAIME) - Final Complete Laboratory Tests Test 06/23/17 06:20 06/23/17 10:45 White Blood Count 4.8 K/UL (4.8-10.8) Red Blood Count 3.38 M/UL (4.70-6.10) L Hemoglobin 10.3 G/DL (14.2-18.0) L Hematocrit 30.8 % (42.0-52.0) L Mean Corpuscular Volume 91 FL (80-99) Mean Corpuscular Hemoglobin 30.7 PG (27.0-31.0) Mean Corpuscular Hemoglobin Concent 33.5 G/DL (32.0-36.0) Red Cell Distribution Width 15.9 % (11.6-14.8) H Platelet Count 177 K/UL (150-450) Mean Platelet Volume 5.8 FL (6.5-10.1) L Neutrophils (%) (Auto) 55.9 % (45.0-75.0) Lymphocytes (%) (Auto) 27.8 % (20.0-45.0) Monocytes (%) (Auto) 15.1 % (1.0-10.0) H Eosinophils (%) (Auto) 0.1 % (0.0-3.0) Basophils (%) (Auto) 1.0 % (0.0-2.0) Sodium Level 140 MMOL/L (136-145) Potassium Level 3.7 MMOL/L (3.5-5.1) Chloride Level 108 MMOL/L (98-107) H Carbon Dioxide Level 26 MMOL/L (21-32) Anion Gap 6 mmol/L (5-15) Blood Urea Nitrogen 14 mg/dL (7-18) Creatinine 1.1 MG/DL (0.55-1.30) Estimat Glomerular Filtration Rate mL/min (>60) Glucose Level 85 MG/DL (74-106) Calcium Level 7.8 MG/DL (8.5-10.1) L Amylase Level 82 U/L (25-115) Lipase 152 U/L (73-393) Stool Occult Blood Negative (NEGATIVE) Current Medications Medications (Trade) Dose Ordered Sig/Amando Route PRN Reason Start Time Stop Time Status Last Admin Dose Admin Acetaminophen (Tylenol) 650 mg Q6H PRN ORAL Mild Pain/Temp > 100.5 06/22/17 09:45 07/22/17 09:44 06/22/17 09:44 Acetaminophen/ Hydrocodone Bitart ([place] 5/325) 1 tab Q8H PRN ORAL Severe Pain (Pain Scale 7-10) 06/22/17 09:00 06/29/17 08:59 Albuterol/ Ipratropium (Albuterol/ Ipratropium) 3 ml Q6H PRN HHN Shortness of Breath 06/23/17 10:00 06/28/17 09:59 Amlodipine Besylate (Norvasc) 5 mg DAILY ORAL 06/22/17 09:00 07/22/17 08:59 06/23/17 09:08 Cefepime HCl 2 gm/ Sodium Chloride 55 ml @ 110 mls/hr Q24H IVPB 06/22/17 12:00 06/29/17 11:59 06/23/17 11:24 Lidocaine (Lidoderm 5% PATCH) 1 patch DAILY PRN TDERMAL FOR BACK PAIN 06/22/17 19:45 07/22/17 19:44 Metronidazole 100 ml @ 100 mls/hr Q8HR IVPB 06/22/17 15:30 06/29/17 15:29 06/23/17 05:39 Ondansetron HCl (Zofran) 4 mg Q6H PRN IVP Nausea & Vomiting 06/22/17 08:30 07/22/17 08:29 Pantoprazole (Protonix) 40 mg ACBREAKFAST ORAL 06/22/17 11:30 07/22/17 11:29 06/23/17 05:38 Prednisone (predniSONE) 15 mg QOD ORAL 06/22/17 09:00 07/22/17 08:59 06/22/17 10:48 Rivaroxaban (Xarelto) 15 mg DAILY ORAL 06/22/17 09:00 07/22/17 08:59 06/23/17 09:07 Sennosides (Senokot) 2 tab QHS ORAL 06/22/17 21:00 07/22/17 20:59 06/22/17 22:13 Tamsulosin HCl (Flomax) 0.4 mg BEDTIME ORAL 06/22/17 21:00 07/22/17 20:59 06/22/17 22:13 Tramadol HCl (Ultram) 50 mg Q6H PRN ORAL Moderate Pain (Pain Scale 4-6) 06/22/17 09:00 06/29/17 08:59 06/22/17 09:44 Vancomycin HCl (Vanco rx to dose) 1 ea DAILY PRN MISC Per rx protocol 06/22/17 11:00 07/22/17 10:59 Vancomycin/Sodium Chloride 250 ml @ 166.667 mls/hr Q24H IVPB 06/23/17 13:00 06/28/17 12:59 06/23/17 12:20 Josesito Villeda M.D. Jun 23, 2017 13:45
--- NOTE | 2017-06-23 15:03 | Diagnostic Imaging Report ---
Indication: Shortness of breath and cough Technique: One view of the chest Comparison: 10/10/2014 Findings: Inspiration is suboptimal. There is a moderate to large left pleural effusion, new since prior study. The right lung and pleural space are clear. Impression: Moderate to large left pleural effusion, new since 10/10/2014 Other findings as described
[2017-06-23 16:00] VITALS: BP 141/78
[2017-06-23 20:31] VITALS: BP 139/77
[2017-06-23] MEDS: Sennosides 8.6mg ORAL SCH (20:46)
[2017-06-23] MEDS: Tamsulosin 0.4mg cap ORAL SCH (20:46)
[2017-06-24] VITALS (7 sets, daily range): BP systolic 128–156; BP diastolic 70–92
--- NOTE | 2017-06-24 03:30 | Consultation ---
DATE OF CONSULTATION: 06/22/2017 INFECTIOUS DISEASE CONSULTATION REQUESTING PHYSICIAN: Annamaria Lemus M.D. REASON FOR CONSULTATION: Aspiration pneumonia, fever, and sepsis. Recommendation for antibiotics treatment and management. HISTORY OF PRESENT ILLNESS: The patient is an 82-year-old male with past medical history of multiple myeloma who was recently treated at [facility], was sent from longterm due to nausea, vomiting, and weakness. The patient was complaining of right side lower abdominal pain. Denied any fever or chills. No urinary complaints. No shortness of breath or cough. No recent upper respiratory infection. The patient had a CT scan of the abdomen and pelvis in the emergency room which showed evidence of left-sided pneumonia so he was started on antibiotics treatment and Infectious Disease consultation was requested for further evaluation and management. As of note, the patient is altered and unable to provide me any history at the time of interview, could not provide any good history so history was mainly obtained from the medical record and the primary physician. REVIEW OF SYSTEMS: Unable to obtain. The patient is altered, cannot provide any history. PAST MEDICAL HISTORY: Significant for coronary artery disease status post stent in February 2009, hypertension, multiple myeloma, GERD, hernia repair in 2009. PAST SURGICAL HISTORY: Stent placement in February 2009 and right herniorrhaphy in 2009. ALLERGIES: He has no known drug allergy. MEDICATIONS: The patient was started on vancomycin and cefepime for the rest of his medications, please refer to MAR. SOCIAL HISTORY: The patient lives at convalescent home. No recent drugs, tobacco, or alcohol. FAMILY HISTORY: Unable to obtain at this point. PHYSICAL EXAMINATION: VITAL SIGNS: Temperature 98.8, pulse 110, blood pressure 120/80, pulse oximetry 98% on room air. GENERAL: Elderly male, lying in bed, unresponsive, not in acute distress, does not follow commands. HEENT: Normocephalic and atraumatic. Pupils reactive to light equally. Dry oral mucosa. No exudate. No thrush. NECK: Supple. No lymphadenopathy. CARDIOVASCULAR: Regular rate and rhythm. No murmur. No gallop. LUNGS: Left lower lobe with crackles with diminished breathing sounds. No wheezing. Normal breathing efforts. ABDOMEN: Soft, nontender, nondistended. Positive bowel sounds. No hepatosplenomegaly. No ascites. No organomegaly. EXTREMITIES: No edema or cyanosis. No clubbing. LABORATORY DATA: White count 7.9, hemoglobin of 11.6, platelet count 222. BUN 9 and creatinine of 1.2. AST of 26, ALT of 47. Urinalysis showed negative nitrite, negative leukocyte esterase, WBC 0 to 2. IMAGING: CT scan of the abdomen and pelvis showed left basilar [id number] pleural effusion with atelectasis versus pneumonia, compression fracture of L1, L2, L3 vertebra, probably old, diverticulosis. ASSESSMENT AND RECOMMENDATION: 1. Aspiration pneumonia suspect due to altered mental status and dysphagia. We will continue vancomycin and cefepime empiric coverage. Add Flagyl to cover anaerobes. Pending culture results and influenza screening. Recommend to keep NPO. We will order speech evaluation. 2. Sepsis due to the above. Continue wide-spectrum antibiotics. Pending culture. 3. Dysphagia suspect due to altered mental status, would recommend NPO for now and order speech evaluation. keep head of bed above 30 degree all the time. 4. Abdominal pain, unclear etiology. CT abdomen was negative. Management as per primary provider. 5. ID will continue to follow. Josesito Villeda M.D. DR: Tio JOB#: [id number] CC:
[2017-06-24 08:44] LABS: BASOPHILS % (AUTO) 0.6 % (0.0-2.0); HEMATOCRIT 34.8 % (42.0-52.0); HEMOGLOBIN 11.6 G/DL (14.2-18.0); LYMPHOCYTES % (AUTO) 30.4 % (20.0-45.0); MEAN CORPUSCULAR VOLUME 92 FL (80-99); MONOCYTES % (AUTO) 8.6 % (1.0-10.0); NEUTROPHILS % (AUTO) 60.4 % (45.0-75.0); PLATELET COUNT 189 K/UL (150-450); RED BLOOD COUNT 3.79 M/UL (4.70-6.10); RED CELL DISTRIBUTION WIDTH 15.5 % (11.6-14.8); WHITE BLOOD COUNT 6.4 K/UL (4.8-10.8)
--- NOTE | 2017-06-24 08:47 | General Progress Note ---
Assessment/Plan Status: stable Assessment/Plan 1. Aspiration Pneumonia - Asp. precuations. cont IV abx. improving. Swallowing eval done. cont breathing txt. 2. Abd pain and vomiting - resolved. 3. HTN - cont meds. controlled. 4. Generalized weakness - PT and OT eval and txt. 5. H/O Multiple Myloma s/p Chemo - off chemo for past 2 wks per daughter. 6. Pleural Effusion - asymptomatic. Will consider outpatient f/u with record systems analyst. Subjective Date patient seen: Jun 24, 2017 Time patient seen: 08:35 Constitutional: Reports: no symptoms HEENT: Reports: no symptoms Cardiovascular: Reports: no symptoms Respiratory: Reports: no symptoms Gastrointestinal/Abdominal: Reports: no symptoms Genitourinary: Reports: no symptoms Neurologic/Psychiatric: Reports: no symptoms Endocrine: Reports: no symptoms Hematologic/Lymphatic: Reports: no symptoms Allergies: Coded Allergies: No Known Allergies (Unverified , 06/22/17) Subjective This morning he is doing well. He is feeling tired. no fever or chills. No nausea or vomiting. no diarrhea. Objective Last 24 Hour Vital Signs Date Time Temp Pulse Resp B/P (MAP) Pulse Ox O2 Delivery O2 Flow Rate FiO2 06/24/17 08:00 98.2 100 18 147/91 94 Room Air 98.2 06/24/17 04:00 99.1 87 19 156/80 95 Room Air 99.1 06/24/17 04:00 95 Room Air 06/24/17 00:00 96 Room Air 06/24/17 00:00 98.2 90 18 140/70 96 Room Air 98.2 06/23/17 20:31 94 Room Air 06/23/17 20:31 97.9 92 17 139/77 94 97.9 06/23/17 19:48 93 18 Room Air 21 06/23/17 16:00 97.7 92 20 141/78 95 97.7 06/23/17 12:00 97.9 80 20 150/74 96 97.9 06/23/17 09:08 85 136/75 06/23/17 09:00 97.7 85 20 136/75 98 97.7 Intake and Output 06/23/17 06/24/17 19:00 07:00 Intake Total 415 ml 200 ml Balance 415 ml 200 ml Intake Oral 360 ml IV Total 55 ml 200 ml # Voids 3 2 # Bowel Movements 2 Laboratory Tests 06/23/17 10:45: Stool Occult Blood Negative 06/24/17 08:15: White Blood Count [Pending], Red Blood Count [Pending], Hemoglobin [Pending], Hematocrit [Pending], Mean Corpuscular Volume [Pending], Mean Corpuscular Hemoglobin [Pending], Mean Corpuscular Hemoglobin Concent [Pending], Red Cell Distribution Width [Pending], Platelet Count [Pending], Mean Platelet Volume [ Pending], Neutrophils (%) (Auto) [Pending], Lymphocytes (%) (Auto) [Pending], Monocytes (%) (Auto) [Pending], Eosinophils (%) (Auto) [Pending], Basophils (%) (Auto) [Pending], Reticulocyte Count [Pending], Prothrombin Time [Pending], Prothromb Time International Ratio [Pending], Activated Partial Thromboplast Time [Pending], Sodium Level [Pending], Potassium Level [Pending], Chloride Level [Pending], Carbon Dioxide Level [Pending], Blood Urea Nitrogen [Pending], Creatinine [Pending], Estimat Glomerular Filtration Rate [Pending], Glucose Level [Pending], Calcium Level [Pending], Phosphorus Level [Pending], Magnesium Level [Pending], Iron Level [Pending], Unsaturated Iron Binding [Pending], Ferritin [Pending], Vitamin B12 Level [Pending], Folate [Pending], Thyroid Stimulating Hormone (TSH) [Pending], Free Thyroxine [Pending] Height (Feet): 5 Height (Inches): 4.00 Weight (Pounds): 120 General Appearance: no apparent distress, alert EENT: normal ENT inspection Neck: non-tender, normal alignment, supple Cardiovascular: normal peripheral pulses, normal rate, regular rhythm Respiratory/Chest: lungs clear, normal breath sounds Abdomen: normal bowel sounds, non tender, soft Extremities: normal range of motion, non-tender Edema: no edema noted Arm (L), no edema noted Arm (R), no edema noted Leg (L), no edema noted Leg (R), no edema noted Pedal (L), no edema noted Pedal (R), no edema noted Generalized Neurologic: no motor/sensory deficits, alert, responsive Skin: warm/dry JANETH THOMAS Jun 24, 2017 08:47
[2017-06-24 08:50] LABS: INR 1.3 (0.9-1.1)
[2017-06-24] MEDS: Xarelto 10mg tab ORAL SCH (09:45)
[2017-06-24 10:16] LABS: BLOOD UREA NITROGEN 13 mg/dL (7-18); CALCIUM 8.3 MG/DL (8.5-10.1); CHLORIDE 104 MMOL/L (98-107); CREATININE 1.1 MG/DL (0.55-1.30); FERRITIN 1927 NG/ML (8-388); POTASSIUM 3.5 MMOL/L (3.5-5.1); SODIUM 139 MMOL/L (136-145)
[2017-06-24 10:20] LABS: CARBON DIOXIDE 24 MMOL/L (21-32)
[2017-06-24 10:23] LABS: ANION GAP 11 mmol/L (5-15)
[2017-06-24 10:34] LABS: % IRON SATURATION 20 % (15-50); IRON 25 ug/dL (50-175); TOTAL IRON BINDING CAPACITY 124 ug/dL (250-450)
[2017-06-24 10:41] LABS: PHOSPHORUS 2.6 MG/DL (2.5-4.9)
[2017-06-24] MEDS: Cefepime HCl 2 GM in NS 55 ML IVPB SCH (11:29)
[2017-06-24] MEDS: Vancomycin 750mg/NS 250ml IVPB SCH (13:45)
--- NOTE | 2017-06-24 14:48 | Infectious Diseases Prog Note ---
Assessment/Plan Problems: (1) Aspiration pneumonia Assessment & Plan: continue vancomycin, cefepime, and flagyl , pending culture results, influenza screening is negative , repeat speech eval (2) Sepsis Assessment & Plan: suspect due to the above , continue wide spectrum antibiotics pending blood cultures (3) Dysphagia Assessment & Plan: due to altered mental status , repeat swallow eval , continue aspiration precaution and keep HOB > 30 degree (4) Abdominal pain Assessment & Plan: for ultrasound today , unclear etiology, CT abdomen was negative. Subjective Constitutional: Reports: fatigue HEENT: Reports: no symptoms Respiratory: Reports: dry cough Breasts: Reports: no symptoms Cardiovascular: Reports: no symptoms Gastrointestinal/Abdominal: Reports: no symptoms Genitourinary: Reports: no symptoms Neurologic: Reports: weakness Psychiatric: Reports: no symptoms Skin: Reports: no symptoms Endocrine: Reports: no symptoms Hematologic: Reports: no symptoms Musculoskeletal: Reports: no symptoms Allergies: Coded Allergies: No Known Allergies (Unverified , 06/22/17) Objective Vital Signs Last 24 Hour Vital Signs Date Time Temp Pulse Resp B/P (MAP) Pulse Ox O2 Delivery O2 Flow Rate FiO2 06/24/17 12:00 98.1 91 20 136/78 98 Room Air 98.1 06/24/17 08:00 98.2 100 18 147/91 94 Room Air 98.2 06/24/17 07:57 93 18 Room Air 21 06/24/17 04:00 99.1 87 19 156/80 95 Room Air 99.1 06/24/17 04:00 95 Room Air 06/24/17 00:00 96 Room Air 06/24/17 00:00 98.2 90 18 140/70 96 Room Air 98.2 06/23/17 20:31 94 Room Air 06/23/17 20:31 97.9 92 17 139/77 94 97.9 06/23/17 19:48 93 18 Room Air 21 06/23/17 16:00 97.7 92 20 141/78 95 97.7 Height (Feet): 5 Height (Inches): 4.00 Weight (Pounds): 120 General Appearance: WD/WN, no acute distress HEENT: normocephalic, atraumatic, anicteric, mucous membranes moist, PERRL Respiratory/Chest: chest wall non-tender, normal breath sounds, no respiratory distress, no accessory muscle use, decreased breath sounds, crackles/rales Cardiovascular: normal peripheral pulses, normal rate, regular rhythm, no gallop/murmur, no JVD Abdomen: normal bowel sounds, soft, non tender, no organomegaly, non distended , no mass, no scars Extremities: no cyanosis, no clubbing Skin: no rash, no lesions, no ulcers Neurologic/Psychiatric: alert, responsive Lymphatic: no neck adenopathy, no groin adenopathy Microbiology Date/Time Source Procedure Growth Status 06/22/17 14:50 Nasal Nares Influenza Types A,B Antigen (JAMIE) - Final Complete 06/22/17 06:50 Nose MRSA Culture - Final NO METHICILLIN RESISTANT STAPH AUREUS... Complete 06/23/17 10:45 Stool Clostridium difficile Toxin Assay - Final Complete 06/22/17 06:50 Rectum VRE Culture - Final NO VANCOMYCIN RESISTANT ENTEROCOCCUS ... Complete Laboratory Tests Test 06/24/17 08:15 White Blood Count 6.4 K/UL (4.8-10.8) Red Blood Count 3.79 M/UL (4.70-6.10) L Hemoglobin 11.6 G/DL (14.2-18.0) L Hematocrit 34.8 % (42.0-52.0) L Mean Corpuscular Volume 92 FL (80-99) Mean Corpuscular Hemoglobin 30.5 PG (27.0-31.0) Mean Corpuscular Hemoglobin Concent 33.2 G/DL (32.0-36.0) Red Cell Distribution Width 15.5 % (11.6-14.8) H Platelet Count 189 K/UL (150-450) Mean Platelet Volume 5.3 FL (6.5-10.1) L Neutrophils (%) (Auto) 60.4 % (45.0-75.0) Lymphocytes (%) (Auto) 30.4 % (20.0-45.0) Monocytes (%) (Auto) 8.6 % (1.0-10.0) Eosinophils (%) (Auto) 0.0 % (0.0-3.0) Basophils (%) (Auto) 0.6 % (0.0-2.0) Reticulocyte Count 1.3 % (0.0-2.0) Prothrombin Time 13.3 SEC (9.30-11.50) H Prothromb Time International Ratio 1.3 (0.9-1.1) H Activated Partial Thromboplast Time 36 SEC (23-33) H Sodium Level 139 MMOL/L (136-145) Potassium Level 3.5 MMOL/L (3.5-5.1) Chloride Level 104 MMOL/L (98-107) Carbon Dioxide Level 24 MMOL/L (21-32) Anion Gap 11 mmol/L (5-15) Blood Urea Nitrogen 13 mg/dL (7-18) Creatinine 1.1 MG/DL (0.55-1.30) Estimat Glomerular Filtration Rate mL/min (>60) Glucose Level 88 MG/DL (74-106) Calcium Level 8.3 MG/DL (8.5-10.1) L Phosphorus Level 2.6 MG/DL (2.5-4.9) Magnesium Level 2.1 MG/DL (1.8-2.4) Iron Level 25 ug/dL (50-175) L Total Iron Binding Capacity 124 ug/dL (250-450) L Percent Iron Saturation 20 % (15-50) Unsaturated Iron Binding 99 ug/dL (112-346) L Ferritin 1927 NG/ML (8-388) H Vitamin B12 Level 283 PG/ML (193-986) Folate 14.9 NG/ML (8.6-58.9) Thyroid Stimulating Hormone (TSH) 1.164 uiU/mL (0.358-3.740) Free Thyroxine 0.88 NG/DL (0.76-1.46) Current Medications Medications (Trade) Dose Ordered Sig/Amando Route PRN Reason Start Time Stop Time Status Last Admin Dose Admin Acetaminophen (Tylenol) 650 mg Q6H PRN ORAL Mild Pain/Temp > 100.5 06/22/17 09:45 07/22/17 09:44 06/22/17 09:44 Acetaminophen/ Hydrocodone Bitart ([place] 5/325) 1 tab Q8H PRN ORAL Severe Pain (Pain Scale 7-10) 06/22/17 09:00 06/29/17 08:59 Albuterol/ Ipratropium (Albuterol/ Ipratropium) 3 ml Q6H PRN HHN Shortness of Breath 06/23/17 10:00 06/28/17 09:59 Amlodipine Besylate (Norvasc) 5 mg DAILY ORAL 06/22/17 09:00 07/22/17 08:59 06/23/17 09:08 Cefepime HCl 2 gm/ Sodium Chloride 55 ml @ 110 mls/hr Q24H IVPB 06/22/17 12:00 06/29/17 11:59 06/24/17 11:29 Lidocaine (Lidoderm 5% PATCH) 1 patch DAILY PRN TDERMAL FOR BACK PAIN 06/22/17 19:45 07/22/17 19:44 Metronidazole 100 ml @ 100 mls/hr Q8HR IVPB 06/22/17 15:30 06/29/17 15:29 06/24/17 04:57 Ondansetron HCl (Zofran) 4 mg Q6H PRN IVP Nausea & Vomiting 06/22/17 08:30 07/22/17 08:29 Pantoprazole (Protonix) 40 mg DAILY ORAL 06/25/17 09:00 07/25/17 08:59 Prednisone (predniSONE) 15 mg QOD ORAL 06/22/17 09:00 07/22/17 08:59 06/22/17 10:48 Rivaroxaban (Xarelto) 15 mg DAILY ORAL 06/22/17 09:00 07/22/17 08:59 06/23/17 09:07 Sennosides (Senokot) 2 tab QHS ORAL 06/22/17 21:00 07/22/17 20:59 06/23/17 20:46 Tamsulosin HCl (Flomax) 0.4 mg BEDTIME ORAL 06/22/17 21:00 07/22/17 20:59 06/23/17 20:46 Tramadol HCl (Ultram) 50 mg Q6H PRN ORAL Moderate Pain (Pain Scale 4-6) 06/22/17 09:00 06/29/17 08:59 06/22/17 09:44 Vancomycin HCl (Vanco rx to dose) 1 ea DAILY PRN MISC Per rx protocol 06/22/17 11:00 07/22/17 10:59 Vancomycin/Sodium Chloride 250 ml @ 166.667 mls/hr Q24H IVPB 06/23/17 13:00 06/28/17 12:59 06/24/17 13:45 Josesito Villeda M.D. Jun 24, 2017 14:48
--- NOTE | 2017-06-24 16:08 | Cardiology Report ---
APPROVED REPORT EKG Measurement Heart [id number] [id number] Sinus tachycardia Possible Left atrial enlargement Right bundle branch block Left anterior fascicular block Bifascicular block Cannot rule out Inferior infarct (masked by fascicular block?), age undetermined Possible Anterolateral infarct, age undetermined Abnormal ECG
--- NOTE | 2017-06-24 17:01 | GI Progress Note ---
Assessment/Plan Problems: (1) Vomiting ICD Codes: R11.10 - Vomiting, unspecified SNOMED: 856723234 (2) Dehydration ICD Codes: E86.0 - Dehydration SNOMED: 58566778 (3) Abdominal pain ICD Codes: R10.9 - Unspecified abdominal pain SNOMED: 38982585 Qualifiers: Qualified Codes: R10.31 - Right lower quadrant pain (4) Diarrhea ICD Codes: R19.7 - Diarrhea, unspecified SNOMED: 01351093 (5) Dysphagia ICD Codes: R13.10 - Dysphagia, unspecified SNOMED: 62234509, 500122014 (6) Episode of generalized weakness ICD Codes: R53.1 - Weakness SNOMED: 65566338 Status: unchanged Status Narrative Discussed with Dr. Pleitez. Assessment/Plan OB stool negative cdiff negative fu abdominal U/S symptomatic treatment zofran prn, reglan for persistent vomiting ST eval for dysphagia, possible video adv diet per ST PT/OT eval electrolyte correction ppi bowel regime fu labs The patient was seen and examined at bedside and all new and available data was reviewed in the patients chart. I agree with the above findings, impression and plan. (Patient seen earlier today. Signature stamp does not reflect patient encounter time.). - Jose Pleitez MD Subjective Gastrointestinal/Abdominal: Reports: abdominal pain Objective Last 24 Hour Vital Signs Date Time Temp Pulse Resp B/P (MAP) Pulse Ox O2 Delivery O2 Flow Rate FiO2 06/24/17 16:30 98.2 87 20 128/85 97 Room Air 98.2 06/24/17 12:00 98.1 91 20 136/78 98 Room Air 98.1 06/24/17 08:00 98.2 100 18 147/91 94 Room Air 98.2 06/24/17 07:57 93 18 Room Air 21 06/24/17 04:00 99.1 87 19 156/80 95 Room Air 99.1 06/24/17 04:00 95 Room Air 06/24/17 00:00 96 Room Air 06/24/17 00:00 98.2 90 18 140/70 96 Room Air 98.2 06/23/17 20:31 94 Room Air 06/23/17 20:31 97.9 92 17 139/77 94 97.9 06/23/17 19:48 93 18 Room Air 21 Intake and Output 06/23/17 06/24/17 19:00 07:00 Intake Total 415 ml 200 ml Balance 415 ml 200 ml Intake Oral 360 ml IV Total 55 ml 200 ml # Voids 3 2 # Bowel Movements 2 Laboratory Tests Test 06/24/17 08:15 White Blood Count 6.4 K/UL (4.8-10.8) Red Blood Count 3.79 M/UL (4.70-6.10) L Hemoglobin 11.6 G/DL (14.2-18.0) L Hematocrit 34.8 % (42.0-52.0) L Mean Corpuscular Volume 92 FL (80-99) Mean Corpuscular Hemoglobin 30.5 PG (27.0-31.0) Mean Corpuscular Hemoglobin Concent 33.2 G/DL (32.0-36.0) Red Cell Distribution Width 15.5 % (11.6-14.8) H Platelet Count 189 K/UL (150-450) Mean Platelet Volume 5.3 FL (6.5-10.1) L Neutrophils (%) (Auto) 60.4 % (45.0-75.0) Lymphocytes (%) (Auto) 30.4 % (20.0-45.0) Monocytes (%) (Auto) 8.6 % (1.0-10.0) Eosinophils (%) (Auto) 0.0 % (0.0-3.0) Basophils (%) (Auto) 0.6 % (0.0-2.0) Reticulocyte Count 1.3 % (0.0-2.0) Prothrombin Time 13.3 SEC (9.30-11.50) H Prothromb Time International Ratio 1.3 (0.9-1.1) H Activated Partial Thromboplast Time 36 SEC (23-33) H Sodium Level 139 MMOL/L (136-145) Potassium Level 3.5 MMOL/L (3.5-5.1) Chloride Level 104 MMOL/L (98-107) Carbon Dioxide Level 24 MMOL/L (21-32) Anion Gap 11 mmol/L (5-15) Blood Urea Nitrogen 13 mg/dL (7-18) Creatinine 1.1 MG/DL (0.55-1.30) Estimat Glomerular Filtration Rate mL/min (>60) Glucose Level 88 MG/DL (74-106) Calcium Level 8.3 MG/DL (8.5-10.1) L Phosphorus Level 2.6 MG/DL (2.5-4.9) Magnesium Level 2.1 MG/DL (1.8-2.4) Iron Level 25 ug/dL (50-175) L Total Iron Binding Capacity 124 ug/dL (250-450) L Percent Iron Saturation 20 % (15-50) Unsaturated Iron Binding 99 ug/dL (112-346) L Ferritin 1927 NG/ML (8-388) H Vitamin B12 Level 283 PG/ML (193-986) Folate 14.9 NG/ML (8.6-58.9) Thyroid Stimulating Hormone (TSH) 1.164 uiU/mL (0.358-3.740) Free Thyroxine 0.88 NG/DL (0.76-1.46) Height (Feet): 5 Height (Inches): 4.00 Weight (Pounds): 120 General Appearance: alert, thin Cardiovascular: normal rate Respiratory/Chest: normal breath sounds, no respiratory distress Abdominal Exam: normal bowel sounds, soft, tender Merari Dorsey N.Ayaka Jun 24, 2017 17:00 KERRY PLEITEZ Jul 01, 2017 13:34
[2017-06-24] MEDS: Tamsulosin 0.4mg cap ORAL SCH (20:25)
[2017-06-24] MEDS: Sennosides 8.6mg ORAL SCH (20:25)
[2017-06-25 04:00] VITALS: BP 134/83
[2017-06-25 07:29] LABS: BASOPHILS % (AUTO) 0.9 % (0.0-2.0); HEMATOCRIT 33.4 % (42.0-52.0); HEMOGLOBIN 11.3 G/DL (14.2-18.0); LYMPHOCYTES % (AUTO) 38.1 % (20.0-45.0); MEAN CORPUSCULAR VOLUME 91 FL (80-99); MONOCYTES % (AUTO) 10.5 % (1.0-10.0); NEUTROPHILS % (AUTO) 50.4 % (45.0-75.0); PLATELET COUNT 176 K/UL (150-450); RED BLOOD COUNT 3.67 M/UL (4.70-6.10); RED CELL DISTRIBUTION WIDTH 15.2 % (11.6-14.8); WHITE BLOOD COUNT 4.8 K/UL (4.8-10.8)
[2017-06-25 08:00] VITALS: BP 122/80
[2017-06-25] MEDS: Xarelto 10mg tab ORAL SCH (08:35)
[2017-06-25 08:46] LABS: ANION GAP 7 mmol/L (5-15); BLOOD UREA NITROGEN 15 mg/dL (7-18); CALCIUM 8.4 MG/DL (8.5-10.1); CARBON DIOXIDE 27 MMOL/L (21-32); CHLORIDE 106 MMOL/L (98-107); CREATININE 1.2 MG/DL (0.55-1.30); POTASSIUM 3.4 MMOL/L (3.5-5.1); SODIUM 140 MMOL/L (136-145)
--- NOTE | 2017-06-25 08:54 | General Progress Note ---
Assessment/Plan Status: stable Assessment/Plan 1. Aspiration Pneumonia - Asp. precuations. cont IV abx. for 6 more days at halfway. Video Swallowing eval this morning. He is taking regular food per family request. 2. Abd pain and vomiting - resolved. 3. HTN - cont meds. controlled. 4. Generalized weakness - PT and OT eval and txt done. will D/C to [facility] for further PT/OT and IV abx today. 5. H/O Multiple Myloma s/p Chemo - off chemo for past 2 wks per daughter. 6. Pleural Effusion - asymptomatic. Will consider outpatient f/u with stock puller. Subjective Date patient seen: Jun 25, 2017 Time patient seen: 08:30 Constitutional: Reports: weakness HEENT: Reports: no symptoms Cardiovascular: Reports: no symptoms Respiratory: Reports: no symptoms Gastrointestinal/Abdominal: Reports: no symptoms Genitourinary: Reports: no symptoms Neurologic/Psychiatric: Reports: no symptoms Endocrine: Reports: no symptoms Hematologic/Lymphatic: Reports: no symptoms Allergies: Coded Allergies: No Known Allergies (Unverified , 06/22/17) Subjective This morning he is doing well but he is feeling tired and weak. No fever or chills. No nausea or vomiting. no diarrhea. He is suppose to have swallowing eval done today but he is taking regular food per family request. Objective Last 24 Hour Vital Signs Date Time Temp Pulse Resp B/P (MAP) Pulse Ox O2 Delivery O2 Flow Rate FiO2 06/25/17 08:35 62 134/83 06/25/17 04:00 98.2 62 20 134/83 95 98.2 06/25/17 00:00 94 Room Air 06/24/17 23:50 98.1 93 18 148/92 94 98.1 06/24/17 20:00 96 Room Air 06/24/17 19:49 97.9 95 18 141/85 96 97.9 06/24/17 19:01 90 20 Room Air 21 06/24/17 16:30 98.2 87 20 128/85 97 Room Air 98.2 06/24/17 12:00 98.1 91 20 136/78 98 Room Air 98.1 Intake and Output 06/24/17 06/25/17 19:00 07:00 Intake Total 485.000 ml 200 ml Balance 485.000 ml 200 ml Intake Oral 180 ml IV Total 305.000 ml 200 ml # Voids 4 3 # Bowel Movements 1 2 Laboratory Tests 06/25/17 06:10: White Blood Count 4.8, Red Blood Count 3.67L, Hemoglobin 11.3L, Hematocrit 33.4L , Mean Corpuscular Volume 91, Mean Corpuscular Hemoglobin 30.7, Mean Corpuscular Hemoglobin Concent 33.7, Red Cell Distribution Width 15.2H, Platelet Count 176, Mean Platelet Volume 6.4L, Neutrophils (%) (Auto) 50.4, Lymphocytes (%) (Auto) 38.1, Monocytes (%) (Auto) 10.5H, Eosinophils (%) (Auto) 0.0, Basophils (%) (Auto) 0.9, Sodium Level [Pending], Potassium Level [Pending] , Chloride Level [Pending], Carbon Dioxide Level [Pending], Blood Urea Nitrogen [Pending], Creatinine [Pending], Estimat Glomerular Filtration Rate [Pending], Glucose Level [Pending], Calcium Level [Pending] Height (Feet): 5 Height (Inches): 4.00 Weight (Pounds): 120 General Appearance: no apparent distress, alert EENT: normal ENT inspection Neck: non-tender, normal alignment, supple Cardiovascular: normal peripheral pulses, normal rate, regular rhythm Respiratory/Chest: chest wall non-tender, lungs clear, normal breath sounds Abdomen: normal bowel sounds, non tender, soft Extremities: normal range of motion, non-tender Edema: no edema noted Arm (L), no edema noted Arm (R), no edema noted Leg (L), no edema noted Leg (R), no edema noted Pedal (L), no edema noted Pedal (R), no edema noted Generalized Edema: mild edema Neurologic: alert, oriented x 3, responsive Skin: warm/dry Lymphatic: normal anterior cervical (L), normal anterior cervical (R), normal posterior cervical (L), normal posterior cervical (R), normal submandibular (L) , normal submandibular (R), normal supraclavicular (L), normal supraclavicular ( R), normal axillary (L), normal axillary (R), normal inguinal (L), normal inguinal (R), normal other [facility] Jun 25, 2017 08:54
--- NOTE | 2017-06-25 09:55 | Diagnostic Imaging Report ---
Indication:Abdominal pain Technique: Grayscale and duplex Doppler imaging of the abdomen performed. Comparison: None Findings: Study limited by a contraction and uncooperative nature of the patient. Patient was combative. Aorta is moderately calcified. No obvious abnormalities of the gallbladder, liver or spleen identified. Bilateral renal cysts noted. CBD is 4 mm in diameter. There is no obvious free fluid or hydronephrosis. Main portal vein is patent by Doppler examination. IMPRESSION: No acute findings appreciated. Bilateral renal cysts. Exam is limited as discussed above
[2017-06-25 12:00] VITALS: BP 138/92
[2017-06-25] MEDS ORDERED: CEFEPIME-D2 GM/50 ML IVPB (13:00)
[2017-06-25] MEDS ORDERED: METRONIDAZOLE500 MG ORAL (13:01)
[2017-06-25] MEDS ORDERED: VANCOMYCIN1 GM/2502 IVPB (13:01)
[2017-06-25] MEDS ORDERED: SENNOSIDES8.6 MG ORAL (13:03)
--- NOTE | 2017-06-25 13:22 | GI Progress Note ---
Assessment/Plan Problems: (1) Vomiting ICD Codes: R11.10 - Vomiting, unspecified SNOMED: 415269476 (2) Dehydration ICD Codes: E86.0 - Dehydration SNOMED: 30219128 (3) Abdominal pain ICD Codes: R10.9 - Unspecified abdominal pain SNOMED: 10987438 Qualifiers: Qualified Codes: R10.31 - Right lower quadrant pain (4) Diarrhea ICD Codes: R19.7 - Diarrhea, unspecified SNOMED: 11532499 (5) Dysphagia ICD Codes: R13.10 - Dysphagia, unspecified SNOMED: 66893383, 810927619 (6) Episode of generalized weakness ICD Codes: R53.1 - Weakness SNOMED: 49440515 Status: stable Status Narrative Discussed with Dr. Pleitez. Assessment/Plan OB stool negative cdiff negative abdominal U/S reviewed CT AP reviewed symptomatic treatment zofran prn, reglan for persistent vomiting ST eval for dysphagia, possible video adv diet per ST PT/OT eval electrolyte correction ppi bowel regime fu labs Subjective Gastrointestinal/Abdominal: Reports: abdominal pain Objective Last 24 Hour Vital Signs Date Time Temp Pulse Resp B/P (MAP) Pulse Ox O2 Delivery O2 Flow Rate FiO2 06/25/17 12:00 97.5 89 16 138/92 96 97.5 06/25/17 08:35 62 134/83 06/25/17 08:00 98.2 96 14 122/80 98.2 06/25/17 04:00 98.2 62 20 134/83 95 98.2 06/25/17 00:00 94 Room Air 06/24/17 23:50 98.1 93 18 148/92 94 98.1 06/24/17 20:00 96 Room Air 06/24/17 19:49 97.9 95 18 141/85 96 97.9 06/24/17 19:01 90 20 Room Air 21 06/24/17 16:30 98.2 87 20 128/85 97 Room Air 98.2 Intake and Output 06/24/17 06/25/17 19:00 07:00 Intake Total 485.000 ml 200 ml Balance 485.000 ml 200 ml Intake Oral 180 ml IV Total 305.000 ml 200 ml # Voids 4 3 # Bowel Movements 1 2 Laboratory Tests Test 06/25/17 06:10 White Blood Count 4.8 K/UL (4.8-10.8) Red Blood Count 3.67 M/UL (4.70-6.10) L Hemoglobin 11.3 G/DL (14.2-18.0) L Hematocrit 33.4 % (42.0-52.0) L Mean Corpuscular Volume 91 FL (80-99) Mean Corpuscular Hemoglobin 30.7 PG (27.0-31.0) Mean Corpuscular Hemoglobin Concent 33.7 G/DL (32.0-36.0) Red Cell Distribution Width 15.2 % (11.6-14.8) H Platelet Count 176 K/UL (150-450) Mean Platelet Volume 6.4 FL (6.5-10.1) L Neutrophils (%) (Auto) 50.4 % (45.0-75.0) Lymphocytes (%) (Auto) 38.1 % (20.0-45.0) Monocytes (%) (Auto) 10.5 % (1.0-10.0) H Eosinophils (%) (Auto) 0.0 % (0.0-3.0) Basophils (%) (Auto) 0.9 % (0.0-2.0) Sodium Level 140 MMOL/L (136-145) Potassium Level 3.4 MMOL/L (3.5-5.1) L Chloride Level 106 MMOL/L (98-107) Carbon Dioxide Level 27 MMOL/L (21-32) Anion Gap 7 mmol/L (5-15) Blood Urea Nitrogen 15 mg/dL (7-18) Creatinine 1.2 MG/DL (0.55-1.30) Estimat Glomerular Filtration Rate mL/min (>60) Glucose Level 84 MG/DL (74-106) Calcium Level 8.4 MG/DL (8.5-10.1) L Height (Feet): 5 Height (Inches): 4.00 Weight (Pounds): 120 General Appearance: WD/WN, no apparent distress, alert, thin Cardiovascular: normal rate Respiratory/Chest: normal breath sounds, no respiratory distress Abdominal Exam: normal bowel sounds, non tender, soft Extremities: non-tender Merari Dorsey N.PMonse Jun 25, 2017 13:22
--- NOTE | 2017-06-25 15:32 | Infectious Diseases Prog Note ---
Assessment/Plan Problems: (1) Aspiration pneumonia Assessment & Plan: continue vancomycin, cefepime, and flagyl for total of 10 days, influenza screening is negative , repeat speech eval as an outpatient (2) Sepsis Assessment & Plan: ruled out with negative blood culture, already on wide spectrum antibiotics . (3) Dysphagia Assessment & Plan: due to altered mental status , repeat swallow eval , continue aspiration precaution and keep HOB > 30 degree (4) Abdominal pain Assessment & Plan: resolved , unclear etiology, CT abdomen was negative. Subjective Constitutional: Reports: no symptoms HEENT: Reports: no symptoms Respiratory: Reports: no symptoms Breasts: Reports: no symptoms Cardiovascular: Reports: no symptoms Gastrointestinal/Abdominal: Reports: no symptoms Genitourinary: Reports: no symptoms Neurologic: Reports: no symptoms Psychiatric: Reports: no symptoms Skin: Reports: no symptoms Endocrine: Reports: no symptoms Hematologic: Reports: no symptoms Musculoskeletal: Reports: no symptoms Allergies: Coded Allergies: No Known Allergies (Unverified , 06/22/17) Objective Vital Signs Last 24 Hour Vital Signs Date Time Temp Pulse Resp B/P (MAP) Pulse Ox O2 Delivery O2 Flow Rate FiO2 06/25/17 12:00 97.5 89 16 138/92 96 97.5 06/25/17 08:35 62 134/83 06/25/17 08:00 98.2 96 14 122/80 98.2 06/25/17 04:00 98.2 62 20 134/83 95 98.2 06/25/17 00:00 94 Room Air 06/24/17 23:50 98.1 93 18 148/92 94 98.1 06/24/17 20:00 96 Room Air 06/24/17 19:49 97.9 95 18 141/85 96 97.9 06/24/17 19:01 90 20 Room Air 21 06/24/17 16:30 98.2 87 20 128/85 97 Room Air 98.2 Height (Feet): 5 Height (Inches): 4.00 Weight (Pounds): 120 General Appearance: WD/WN, no acute distress HEENT: normocephalic, atraumatic, anicteric, mucous membranes moist, PERRL, EOMI, pharynx normal, supple, no JVD Respiratory/Chest: chest wall non-tender, lungs clear, normal breath sounds, no respiratory distress, no accessory muscle use Cardiovascular: normal peripheral pulses, normal rate, regular rhythm, no gallop/murmur, no JVD Abdomen: normal bowel sounds, soft, non tender, no organomegaly, non distended , no mass, no scars Extremities: no cyanosis, no clubbing Skin: no rash, no lesions, no ulcers Neurologic/Psychiatric: alert, responsive Lymphatic: no neck adenopathy, no groin adenopathy Microbiology Date/Time Source Procedure Growth Status 06/23/17 10:45 Stool Clostridium difficile Toxin Assay - Final Complete Laboratory Tests Test 06/25/17 06:10 White Blood Count 4.8 K/UL (4.8-10.8) Red Blood Count 3.67 M/UL (4.70-6.10) L Hemoglobin 11.3 G/DL (14.2-18.0) L Hematocrit 33.4 % (42.0-52.0) L Mean Corpuscular Volume 91 FL (80-99) Mean Corpuscular Hemoglobin 30.7 PG (27.0-31.0) Mean Corpuscular Hemoglobin Concent 33.7 G/DL (32.0-36.0) Red Cell Distribution Width 15.2 % (11.6-14.8) H Platelet Count 176 K/UL (150-450) Mean Platelet Volume 6.4 FL (6.5-10.1) L Neutrophils (%) (Auto) 50.4 % (45.0-75.0) Lymphocytes (%) (Auto) 38.1 % (20.0-45.0) Monocytes (%) (Auto) 10.5 % (1.0-10.0) H Eosinophils (%) (Auto) 0.0 % (0.0-3.0) Basophils (%) (Auto) 0.9 % (0.0-2.0) Sodium Level 140 MMOL/L (136-145) Potassium Level 3.4 MMOL/L (3.5-5.1) L Chloride Level 106 MMOL/L (98-107) Carbon Dioxide Level 27 MMOL/L (21-32) Anion Gap 7 mmol/L (5-15) Blood Urea Nitrogen 15 mg/dL (7-18) Creatinine 1.2 MG/DL (0.55-1.30) Estimat Glomerular Filtration Rate mL/min (>60) Glucose Level 84 MG/DL (74-106) Calcium Level 8.4 MG/DL (8.5-10.1) L Josesito Villeda M.D. Jun 25, 2017 15:32
--- NOTE | 2017-06-26 05:45 | Discharge Summary ---
DATE OF ADMISSION: 06/22/2017 DATE OF DISCHARGE: 06/25/2017 HOSPITAL COURSE: This is an 82-year-old [place] male who was transferred from the [facility], [facility] with complaint of a few episodes of vomiting and severe abdominal pain with diarrhea. The patient was seen in the emergency room and CT of the head and abdomen were done that showed left basilar [id number] pleural effusion with atelectasis versus pneumonia and compression fractures at L1, L2, and L3. The patient was started on IV antibiotic, cefepime, vancomycin, and Flagyl to cover for aspiration pneumonia and abdominal pain. The patient responded to the IV antibiotic and improved. Infectious Disease and GI was consulted while in the hospital. The patient also had generalized weakness and PT and OT was consulted in the hospital, however, the patient was not able to ambulate and the patient will be discharged to shelter facility at [facility] for further PT and OT and continuation of IV antibiotic for 6 more days. The patient was supposed to have video swallowing evaluation, however, the patient's family had decided that they wanted the patient to be taking regular food and since the patient was taking regular food, there was no reason to do video swallowing study any more. DISCHARGE DIAGNOSES: 1. Pleural effusion. 2. Aspiration pneumonia. 3. Abdominal pain, nonspecific. 4. History of multiple myeloma, status post chemotherapy. 5. Hyperlipidemia. 6. BPH. 7. Hypertension. 8. Gastritis. 9. Generalized weakness. DISCHARGE MEDICATIONS: Include: 1. Amlodipine 5 mg p.o. daily. 2. Cefepime 2 g IV q.24 hours. 3. Flagyl 500 mg every 8 hours. 4. Protonix 40 mg q.12 h. 5. Xarelto 15 mg daily. 6. Senna one p.o. daily. 7. Flomax 0.4 mg p.o. nightly. 8. Tramadol 50 mg daily p.r.n. 9. Vancomycin 0.75 g IV q.24 hours. 10. Prednisone 15 mg every other day. 11. Crestor 20 mg nightly. 12. Xarelto 15 mg daily. DISPOSITION: The patient will be discharged to [facility] for further IV antibiotic and physical therapy due to generalized weakness. Annamaria Lemus M.D. DR: Cornelia JOB#: [id number] CC:
== END 2017-06-25 14:18 | DRG 178 ==
LOC: EDSEX → EDBD 22:49 → MERGE 23:30 → EMR 23:30 → EDSEX 06-22 00:38 → 4W 06-22 00:38 → EDBEDREQ 06-22 04:59
DX: J69.0 Pneumonitis due to inhalation of food and vomit (principal); J90 Pleural effusion, not elsewhere classified; E86.0 Dehydration; R13.10 Dysphagia, unspecified; E78.5 Hyperlipidemia, unspecified; N40.0 Benign prostatic hyperplasia without lower urinary tract symptoms; I10 Essential (primary) hypertension; K29.70 Gastritis, unspecified, without bleeding; K21.9 Gastro-esophageal reflux disease without esophagitis; R10.9 Unspecified abdominal pain; Z85.79 Personal history of other malignant neoplasms of lymphoid, hematopoietic and related tissues
CPT/HCPCS: 36415; 71045; 74177; 76700; 80048; 80053; 81003; 82150; 82270; 82607; 82728; 82746; 83540; 83550; 83690; 83735; 84100; 84439; 84443; 84484; 85025; 85044; 85610; 85730; 86710; 87040; 87081; 87324; 93005; 94664; 99285